=== PATIENT | male | born 1975 | race Caucasian/White ===

== ENCOUNTER 2019-04-27 18:45 | Emergency (ER) | payer BC, SELFPAY ==
[2019-04-27] MEDS ORDERED: Fluorescein Opthalmic Strip ONE (18:58)
[2019-04-27] MEDS ORDERED: Tetracaine 0.5% OPHTH SOLN/PF 4 ML BOT ONE (18:58)
[2019-04-27] MEDS ORDERED: Adacel (T-DAP) 0.5 ML SYRINGE ONE (19:12)
[2019-04-27] MEDS ORDERED: Gentamicin Ophth Soln 0.3% 5 ml Bottle ONE (19:13)
== END 2019-04-27 19:28 | disposition home or self-care (01) ==
LOC: BURERS 18:45
DX: T15.02XA Foreign body in cornea, left eye, initial encounter (principal); F17.210 Nicotine dependence, cigarettes, uncomplicated; Z23 Encounter for immunization
CPT/HCPCS: 65220; 90471; 90715